=== PATIENT | male | born 1990 | race Two or more races ===

== ENCOUNTER 2023-02-25 20:53 | Emergency (ER) | payer OTHER ==
[~2023-02-25] VITALS: Ht 190.5 cm; Wt 156.5 kg
[2023-02-25] MEDS ORDERED: ZESTRIL5 MG PO (21:21)
[2023-02-25] MEDS ORDERED: WELLBUTRIN XL300 MG PO (21:22)
[2023-02-26 00:25] LABS: HEMOGLOBIN 14.6 g/dL (13-16.00); MEAN CORPUSCULAR HEMOGLOBIN 27.5 pg (27.00-32.0); MEAN CORPUSCULAR HGB CONC 33.1 g/dl (32.0-36.0); PLATELET COUNT 198 K/uL (150-450); RED CELL DISTRIBUTION WIDTH 13.8 % (11.5-14.5)
[2023-02-26 00:56] LABS: BILIRUBIN TOTAL 0.56 mg/dL (0.3-1.2); CALCIUM 8.5 mg/dL (8.5-10.1); CREATININE SERUM 1.29 mg/dL (0.70-1.30); GFR 63.76; GLOBULINA 4.3 G/DL (2.4-3.5); POTASSIUM 3.92 mEq/L (3.5-5.1); TOTAL PROTEIN 8.3 gm/dL (6.4-8.2)
[2023-02-26] MEDS ORDERED: DOLOGESIC-DF 51 EACH PO ×2 (02:07→02:10)
== END 2023-02-26 02:22 | disposition home or self-care (01) ==
LOC: ER 20:53
PROVIDERS: General Practice
DX: B34.8 Other viral infections of unspecified site (principal); R50.9 Fever, unspecified; Z20.822 Contact with and (suspected) exposure to COVID-19

== ENCOUNTER 2023-10-11 09:16 | Emergency (ER) | payer OTHER ==
[~2023-10-11] VITALS: Ht 190.5 cm; Wt 143.3 kg
[~2023-10-11 09:16] MED LIST: DOLOGESIC-DF 51 EACH PO; WELLBUTRIN XL300 MG PO; ZESTRIL5 MG PO
== END 2023-10-11 11:19 | disposition home or self-care (01) ==
LOC: ER 09:16
DX: H16.9 Unspecified keratitis (principal)